=== PATIENT | female | born 1980 | race Caucasian/White ===

== ENCOUNTER 2019-04-27 21:53 | Emergency (ER) | payer MEDICAID, SELFPAY ==
[2019-04-27] MEDS ORDERED: Cephalexin 250 MG CAP ONE (22:06)
[2019-04-27] MEDS ORDERED: Sulfameth/Trimethoprim DS 800-160mg TAB ONE (22:06)
== END 2019-04-27 22:09 | disposition home or self-care (01) ==
LOC: BURERS 21:53
DX: L03.116 Cellulitis of left lower limb (principal)
CPT/HCPCS: 99283

== ENCOUNTER 2019-04-29 18:36 | Emergency (ER) | payer SELFPAY ==
[2019-04-29] MEDS ORDERED: Bacitracin 1 PK ONE (18:56)
[2019-04-29] MEDS ORDERED: cefTRIAXone\\ROCEPHIN 1 GM VIAL ONE (18:56)
[2019-04-29] MEDS ORDERED: Lidocaine 1% PF 5 ML VIAL ONE (18:56)
== END 2019-04-29 19:33 | disposition home or self-care (01) ==
LOC: BURERS 18:36
DX: L02.416 Cutaneous abscess of left lower limb (principal)
CPT/HCPCS: 87070; 87077; 87186; 87205; 96372; 99283; J0696; J2001

== ENCOUNTER 2022-07-27 22:02 | Emergency (ER) | payer SELFPAY | END 2022-07-27 22:54 | disposition home or self-care (01) | LOC: BURERS 22:02 | DX: L23.7 Allergic contact dermatitis due to plants, except food (principal) | CPT/HCPCS: 99282 ==